=== PATIENT | female | born 1940 | race Caucasian/White ===

== ENCOUNTER → 2017-08-04 | Outpatient (CLI) | payer MEDICARE, BC ==
--- NOTE | 2017-08-04 12:22 | RAD ---
MRI left thumb dated 08/04/2017. No comparison available. Clinical indication: Thumb pain for 5 weeks. Recent outside x-ray show small fracture of the base of the thumb. TECHNIQUE: T1 and T2-weighted imaging performed in 3 planes centered at the left thumb. No contrast administered. FINDINGS: There is moderate hypertrophic change of the first carpometacarpal joint with prominent marginal osteophytes and bony fragmentation along the radial and ulnar sides of the joint. No bone marrow edema or discrete fracture line. Small amount of fluid at the joint. The dorsal radial ligament and dorsal central ligament and posterior oblique ligament are ill-defined. Mild degenerative change at the first MTP joint and DIP joint. Mild degenerative change of the scaphotrapezial joint. No periostitis or bone destruction. Flexor and extensor tendons are intact. No significant soft tissue edema pleural carpal bones are unremarkable. The intrinsic wrist ligaments and TFC complex are not well evaluated based on technique. IMPRESSION: 1. 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 Small bone fragments along the joint margins most likely represent small loose bodies and/or prominent osteophytes. There is no significant bone marrow edema to suggest an acute fracture. 2. Ill-definition of the radial collateral ligaments, likely related to chronic degeneration and/or prior tear. There is no significant CMC subluxation at this time. 3. Otherwise no significant bony or soft tissue abnormality. Electronically signed by: Jez Goodwin MD (08/04/2017 12:19 PM) [email or web address]
== END | disposition home or self-care (01) ==
LOC: MRI 10:51
PROVIDERS: ATTEND Internal Medicine
DX: M19.041 Primary osteoarthritis, right hand (principal)
CPT/HCPCS: 73218

== ENCOUNTER → 2017-09-02 | Outpatient (CLI) | payer MEDICARE, BC ==
--- NOTE | 2017-09-02 15:54 | RAD ---
DATE: 09/02/2017. EXAM: DIGITAL SCREEN BILAT W/CAD. HISTORY: Routine mammographic screening. COMPARISON: 09/01/2016. This study was interpreted with the benefit of Computerized Aided Detection (CAD). FINDINGS: The breast parenchyma is primarily fatty replaced. Breast parenchyma level density A.. There are no suspicious masses, microcalcifications or architectural distortion. Scattered calcifications are benign. BI-RADS CATEGORY: 2 BENIGN FINDING(S). RECOMMENDED FOLLOW-UP: 12M 12 MONTH FOLLOW-UP. PQRS compliance statement: Patient information was entered into a reminder system with a target due date 09/02/2018 for the next mammogram. Mammography is a sensitive method for finding small breast cancers, but it does not detect them all and is not a substitute for careful clinical examination. A negative mammogram does not negate a clinically suspicious finding and should not result in delay in biopsying a clinically suspicious abnormality. "Our facility is accredited by the [employer] Mammography Program."
== END | disposition home or self-care (01) ==
LOC: MAMMO 09:32
PROVIDERS: ATTEND Internal Medicine
DX: Z12.31 Encounter for screening mammogram for malignant neoplasm of breast (principal)
CPT/HCPCS: G0202; 77067